=== PATIENT | male | born 1950 | race Caucasian/White ===

== ENCOUNTER 2020-07-17 10:02 | Inpatient (IN) | payer OTHER ==
[2020-07-17] VITALS (7 sets, daily range): BP systolic 107–148; BP diastolic 59–94
[~2020-07-17] VITALS: Ht 177.8 cm; Wt 115.2 kg
[2020-07-17 10:27] LABS: HEMATOCRIT 33.3 % (42.0-52.0); WBC 8.6 thou/uL (4.0-11.0)
[2020-07-17 10:29] LABS: ABSOLUTE NEUTROPHILS 6.3 thou/uL (1.4-8.2); BASOPHILS 0.8 % (0.0-2.0); EOSINOPHILS 3.7 % (0.0-3.0); HEMOGLOBIN 10.6 gm/dL (14.0-18.0); LYMPHOCYTES 14.6 % (24.0-44.0); MCH 29.7 pg (26.0-34.0); MCV 92.9 fL (80.0-100.0); MONOCYTES 7.7 % (1.0-8.0); PLATELET COUNT 275 thou/uL (150-400); POLYS 73.2 % (36.0-66.0); RBC 3.58 mil/uL (4.50-6.00); RDW 19.3 % (10.5-14.5)
--- NOTE | 2020-07-17 10:35 | NUR ---
RT AT BEDSIDE TO ASSESS
[2020-07-17 10:51] LABS: ANISOCYTOSIS 2+; PLATELET ESTIMATE NORMAL
[2020-07-17 10:52] LABS: BE(vivo) 1.8 mmol/L (-2 to +3); HCO3 30.6 mmol/L (22.0-26.0); PO2 190.7 mmHg (80.0-100.0)
[2020-07-17 10:53] LABS: PCO2 72.2 mmHg (35.0-45.0); pH 7.245 (7.360-7.450)
[2020-07-17 11:05] LABS: ANION GAP 3 mmol/L (7-16); BUN 16 mg/dL (7-18); CALCIUM 9.3 mg/dL (8.5-10.1); CHLORIDE 99 mmol/L (98-107); CO2 32 mmol/L (21-32); GLUCOSE 121 mg/dL (74-106); POTASSIUM 4.7 mmol/L (3.5-5.1); SODIUM 134 mmol/L (136-145)
[2020-07-17 11:15] LABS: ALBUMIN 3.4 g/dL (3.4-5.0); MAGNESIUM 1.8 mg/dL (1.8-2.4); SGOT 15 U/L (15-37); SGPT 17 U/L (30-65); TOTAL BILIRUBIN 0.4 mg/dL (0.2-1.0); TOTAL PROTEIN 7.4 g/dL (6.4-8.2); TROPONIN-I <0.06 ng/mL (<0.06)
--- NOTE | 2020-07-17 14:38 | EKG ---
[facility] [place] [address] ELECTROCARDIOGRAM REPORT Name: GRADY MUSE Room #: 170-21 ADM IN M.R.#: [id number] Admission: 07/17/20 Attend Phys: Georgi Salter Discharge: Date of : 48 Report #: [id number] THIS REPORT FOR: cc: NO FAMILY PHYSICIAN or PCP NO FAMILY PHYSICIAN or PCP Gregorio Owusu MD [facility] ~ THIS REPORT FOR: //name// [facility] ED Test Date: 2020-07-17 Test Time: 12:06:45 Pat Name: GRADY MUSE Department: Room: 170 Gender: M Cover Stri[facility] 1950 Requested By: Christian Sullivan Order Number: [id number] MD: Gregorio Owusu Measurements Intervals [place] Rate: 87 P: 62 SC: 127 QRS: 87 QRSD: 133 T: 41 QT: 366 QTc: 441 Interpretive Statements Sinus rhythm Right bundle branch block Baseline wander in lead(s) V2 No previous ECG available for comparison Electronically Signed On 07-17-2020 14:38:40 INFECTION CONTROL NURSE by Gregorio Owusu [email or web address] <ELECTRONICALLY SIGNED> By: Gregorio Owusu MD, FACC 07/17/20 1438 1206 1206 Gregorio Owusu MD, [facility] /EPI
--- NOTE | 2020-07-17 17:30 | NUR ---
PATIENT ADMITTED TO ICU ROOM 247 AT 1657 FROM ED VIA CART. ON BIPAP. ATTACHED TO FLANGE MACHINE OPERATOR AND O2 SAT MONITORS. NO ACUTE DISTRESS NOTED.
--- NOTE | 2020-07-17 19:55 | NUR ---
SPOKE WITH SUNNI BY PHONE, RETURNED PHONE CALL, GIVEN CODE AND UPDATED HER ON THE PATIENT'S STATUS.
[2020-07-18] VITALS (36 sets, daily range): BP systolic 95–153; BP diastolic 47–82
--- NOTE | 2020-07-18 04:46 | NUR ---
>>>BEDSIDE SHIFT REPORT RECEIVED, CARE ASSUMED. PT AWAKE. ON BIPAP SETTINGS AND IS TOLERATING. DENIES PAIN OR DISCOMFORT. WILL CONTINUE TO MONITOR. >>>2000 ASSESSMENTS DONE DOCUMENTED. CONTINUES ON BIPAP SETTINGS, FIO2 AT 30% TOLERATING WITHOUT COMPLICATIONS. DR LOMELI PRESENT, ROUNDING ON PT. UPDATE GIVEN. GAVE ORDER FOR A PCR TEST FOR SECOND COVID-19 TEST. WILL CONTINUE TO MONITOR. >>>0445 PT REFUSED BED BATH AND BLOOD DRAW THIS AM. STATED HE DOES NOT NEED A BATH OR BLOOD DRAWN AT THIS TIME. SECOND PCR COVID TEST RESULTS BACK NEGATIVE. CHARGE NURSE, GLASS FITTER AND ANA CRM COORDINATOR CIRCUIT BREAKER SUPERVISOR NOTIFIED. PT AWAKE THIS TIME, USED BEDSIDE COMMODE. WILL CONTINUE TO MONITOR.
[2020-07-18 05:45] LABS: BE(vivo) 3.2 mmol/L (-2 to +3); HCO3 29.9 mmol/L (22.0-26.0); PO2 75.7 mmHg (80.0-100.0); pH 7.346 (7.360-7.450); sO2 94.2 % (92.0-98.0)
[2020-07-18 09:03] LABS: HEMATOCRIT 35.7 % (42.0-52.0); HEMOGLOBIN 11.4 gm/dL (14.0-18.0); MCH 29.9 pg (26.0-34.0); MCHC 31.9 g/dL (28.0-37.0); MCV 93.8 fL (80.0-100.0); RBC 3.8 mil/uL (4.50-6.00); WBC 10.2 thou/uL (4.0-11.0)
[2020-07-18 09:09] LABS: CALCIUM 10.2 mg/dL (8.5-10.1); CREATININE 1.1 mg/dL (0.7-1.3); POTASSIUM 5.4 mmol/L (3.5-5.1)
[2020-07-18] MEDS ORDERED: LISINOPRIL20 MG PO (13:04)
[2020-07-18] MEDS ORDERED: XARELTO20 MG PO (13:04)
[2020-07-18] MEDS ORDERED: LEVO-T100 MCG PO (13:05)
--- NOTE | 2020-07-18 16:07 | NUR ---
chart review. unable to visit with zcah rt resting and use of bipap with soa. cm visited with venancio via phone call. intro to cm and dcp. she reported " live in house, have front porches steps, but going in side door there is 1. basement where laundry is. he doesnt have to do that. he is independent. [facility], o2 and btx. [facility] not [facility], he can stay at your hospital. thank you"/venancio .
--- NOTE | 2020-07-18 17:41 | NUR ---
Patient had uneventful day. Sat in the chair most of the day. More confortable on his back. Transfer order in since this am. Ate great. Up to BSC x3 to void and have a BM. No pain. Tolerated 4l O2 per NC with adequate oxygenation. Heart rate and rhythm stable. Blood pressures stable. No complaints. Talked to his and got his list of medications. Updated reconcilled medication list. Patient is progressing towards plan of care. See documentation on interventions for assessment detials.
[2020-07-19] VITALS (7 sets, daily range): BP systolic 142–148; BP diastolic 53–70
--- NOTE | 2020-07-19 07:49 | NUR ---
Patient progressing towards plan of care as evidenced by he is tolerating home dose of nasal cannula. He is alert and oriented. He expressed he will go to his [employer] [facility] [employer] and get his cpap fixed and him not wearing it is what caused this. Plan of care is to continue to monitor patient assessments q4 hours, hopefully transfer to CCU, as he is no longer ICU status.
[2020-07-19] MEDS ORDERED: LEVOFLOXACIN750 MG PO (08:46)
[2020-07-19] MEDS ORDERED: CARDIZEM CD 18180 M3 PO (08:47)
[2020-07-19] MEDS ORDERED: PULMICORT0.5 MG/21 INH (08:47)
[2020-07-19] MEDS ORDERED: PREDNISONE 5 MG5 M1 PO (08:48)
--- NOTE | 2020-07-19 10:03 | NUR ---
ccu status. [facility] before he goes home. possible will dc home no needs today or over the weekend.
--- NOTE | 2020-07-19 13:43 | NUR ---
PT DISCHARGED TO HOME VIA WHEELCHAIR WTTH SPOUSE AT 1315. [facility] TO [facility]. PT ON 4L NC. PT'S IV OUT. PER PT, RT DOESNT NEED TO LOOK AT HIS MACHINE.
== END 2020-07-19 13:15 | disposition home or self-care (01) | DRG 189 ==
LOC: ER 10:02 → EROBS 11:42 → ICU 11:42
PROVIDERS: Emergency Medicine; ADMIT Hospitalist; ATTEND Hospitalist
PROC: 5A09357 Assistance with Respiratory Ventilation, Less than 24 Consecutive Hours, Continuous Positive Airway Pressure (ICD-10-PCS; principal; 2020-07-17)
PROC: 5A09357 Assistance with Respiratory Ventilation, Less than 24 Consecutive Hours, Continuous Positive Airway Pressure (ICD-10-PCS; 2020-07-18)
PROC: 5A09357 Assistance with Respiratory Ventilation, Less than 24 Consecutive Hours, Continuous Positive Airway Pressure (ICD-10-PCS; 2020-07-19)
DX: J96.21 Acute and chronic respiratory failure with hypoxia (principal); J44.1 Chronic obstructive pulmonary disease with (acute) exacerbation; J96.22 Acute and chronic respiratory failure with hypercapnia; Z20.828 Contact with and (suspected) exposure to other viral communicable diseases; I10 Essential (primary) hypertension; E03.9 Hypothyroidism, unspecified; D64.9 Anemia, unspecified; G47.419 Narcolepsy without cataplexy; G47.33 Obstructive sleep apnea (adult) (pediatric); E66.9 Obesity, unspecified; Z68.36 Body mass index [BMI] 36.0-36.9, adult; Z85.118 Personal history of other malignant neoplasm of bronchus and lung; Z86.718 Personal history of other venous thrombosis and embolism; Z79.899 Other long term (current) drug therapy
CPT/HCPCS: 10078

== ENCOUNTER → 2021-06-24 | Outpatient (CLI) | payer OTHER ==
[~2021-06-24] MED LIST: CARDIZEM CD 18180 M3 PO; LEVO-T100 MCG PO; LEVOFLOXACIN750 MG PO; LISINOPRIL20 MG PO; PREDNISONE 5 MG5 M1 PO; PULMICORT0.5 MG/21 INH; XARELTO20 MG PO
== END ==
LOC: SJCVC 15:03 → SJCVCIMAG 15:03
PROVIDERS: ATTEND Nuclear Medicine Nuclear Cardiology
DX: I65.23 Occlusion and stenosis of bilateral carotid arteries (principal); R94.31 Abnormal electrocardiogram [ECG] [EKG]; I45.2 Bifascicular block; C34.90 Malignant neoplasm of unspecified part of unspecified bronchus or lung; I71.4 Abdominal aortic aneurysm, without rupture; I10 Essential (primary) hypertension; J44.9 Chronic obstructive pulmonary disease, unspecified; E03.9 Hypothyroidism, unspecified; G47.33 Obstructive sleep apnea (adult) (pediatric); Z86.718 Personal history of other venous thrombosis and embolism; Z87.891 Personal history of nicotine dependence; Z72.89 Other problems related to lifestyle; Z79.899 Other long term (current) drug therapy; Z79.891 Long term (current) use of opiate analgesic

== ENCOUNTER 2021-06-30 07:46 | Inpatient (IN) | payer OTHER ==
[~2021-06-30] VITALS: Ht 177.8 cm; Wt 113.9 kg
[2021-06-30 09:13] VITALS: BP 91/42
[2021-06-30 09:15] LABS: HEMATOCRIT 31.4 % (42.0-52.0); HEMOGLOBIN 9.8 gm/dL (14.0-18.0); MCH 25.5 pg (26.0-34.0); MCHC 31.2 g/dL (28.0-37.0); MCV 81.8 fL (80.0-100.0); RBC 3.84 mil/uL (4.50-6.00); RDW 20.1 % (10.5-14.5); WBC 12.2 thou/uL (4.0-11.0)
[2021-06-30 09:29] LABS: CREATININE 1.2 mg/dL (0.7-1.3); POTASSIUM 4.5 mmol/L (3.5-5.1)
[2021-06-30] MEDS ORDERED: ALBUTEROL2.5 MG/31 INH (10:01)
[2021-06-30] MEDS ORDERED: TESSALON PERLE100 M1 PO (10:02)
[2021-06-30] MEDS ORDERED: BUDESONIDE0.25 MG/2 INH (10:06)
[2021-06-30] MEDS ORDERED: FLEXERIL PO (10:07)
[2021-06-30] MEDS ORDERED: DEXAMETHASONE 44 M1 PO (10:09)
[2021-06-30] MEDS ORDERED: GUAIFENESIN400 MG PO (10:11)
[2021-06-30] MEDS ORDERED: NORCO 10-325 T1 EACH PO (10:12)
[2021-06-30] MEDS ORDERED: KRISTALOSE20 GM PO (10:12)
[2021-06-30] MEDS ORDERED: LEVOTHYROXINE200 MC2 PO (10:14)
[2021-06-30] MEDS ORDERED: XOPENEX HFA15 GM INH (10:14)
[2021-06-30] MEDS ORDERED: LIDODERM1 EACH TOP (10:19)
[2021-06-30] MEDS ORDERED: PRINIVIL40 MG PO (10:20)
[2021-06-30] MEDS ORDERED: IMODIUM A-D2 M1 PO (10:21)
[2021-06-30] MEDS ORDERED: MECLIZINE HCL12.5 MG PO (10:21)
[2021-06-30] MEDS ORDERED: SUPER THERAVIT1 EACH PO (10:22)
[2021-06-30] MEDS ORDERED: ROSUVASTATIN CA10 MG PO (10:24)
[2021-06-30] MEDS ORDERED: MIRALAX17 GM PO (10:24)
[2021-06-30] MEDS ORDERED: BYSTOLIC 5 MG5 M1 PO (10:25)
[2021-06-30] MEDS ORDERED: SENOKOT-S TABL1 EACH PO (10:26)
[2021-06-30] MEDS ORDERED: FUROSEMIDE 20 M20 MG PO (10:31)
[2021-06-30] MEDS ORDERED: KLOR-CON M2020 MEQ PO (10:32)
[2021-06-30] MEDS ORDERED: OLODATEROL (10:33)
[2021-06-30 15:34] LABS: ABSOLUTE NEUTROPHILS 4.4 thou/uL (1.4-8.2); BASOPHILS 0.6 % (0.0-2.0); EOSINOPHILS 3.4 % (0.0-3.0); HEMATOCRIT 27.9 % (42.0-52.0); LYMPHOCYTES 19.9 % (24.0-44.0); MCH 26.6 pg (26.0-34.0); MCHC 32.2 g/dL (28.0-37.0); MCV 82.4 fL (80.0-100.0); MONOCYTES 8.6 % (1.0-8.0); POLYS 67.5 % (36.0-66.0); RBC 3.38 mil/uL (4.50-6.00); WBC 6.5 thou/uL (4.0-11.0)
[2021-06-30 15:37] LABS: PLATELET COUNT 262 thou/uL (150-400)
[2021-06-30 15:38] LABS: URINE BILIRUBIN NEGATIVE (Negative); URINE BLOOD NEGATIVE (Negative); URINE CLARITY CLEAR; URINE COLOR YELLOW; URINE GLUCOSE-RANDOM* NEGATIVE (Negative); URINE KETONES NEGATIVE (Negative); URINE LEUKOCYTES-REFLEX NEGATIVE (Negative); URINE NITRITE-REFLEX NEGATIVE (Negative); URINE PROTEIN (DIPSTICK) NEGATIVE (Negative); URINE SPECIFIC GRAVITY 1.015 (1.005-1.035); URINE UROBILINOGEN 0.2 E.U./dl (0.2-1.0)
[2021-06-30 15:55] LABS: ALBUMIN 2.5 g/dL (3.4-5.0); CALCIUM 9.4 mg/dL (8.5-10.1); CREATININE 0.9 mg/dL (0.7-1.3); POTASSIUM 4.3 mmol/L (3.5-5.1); TOTAL BILIRUBIN 0.3 mg/dL (0.2-1.0); TOTAL PROTEIN 6.3 g/dL (6.4-8.2)
[2021-06-30 15:56] LABS: APTT 28.3 Seconds (24.5-32.8); PROTIME 10.7 Seconds (9.3-11.4)
[2021-06-30 20:30] VITALS: BP 99/56
[2021-07-01 04:45] VITALS: BP 112/66
[2021-07-01 05:45] LABS: CALCIUM 9.4 mg/dL (8.5-10.1); CREATININE 0.9 mg/dL (0.7-1.3); POTASSIUM 5.1 mmol/L (3.5-5.1)
[2021-07-01 05:47] LABS: HEMATOCRIT 27.7 % (42.0-52.0); HEMOGLOBIN 8.8 gm/dL (14.0-18.0); MCH 26.2 pg (26.0-34.0); MCHC 31.6 g/dL (28.0-37.0); MCV 82.9 fL (80.0-100.0); RBC 3.34 mil/uL (4.50-6.00); RDW 19.7 % (10.5-14.5)
[2021-07-01 08:30] VITALS: BP 117/58
[2021-07-01 13:04] VITALS: BP 107/53
[2021-07-01 17:03] VITALS: BP 106/52
[2021-07-01 17:05] VITALS: BP 106/52
--- NOTE | 2021-07-01 17:58 | NUR ---
1705-RECEIVED PT INTO 243 FROM PACU VIA BED.CARDENE INFUSING @ 15MG/HR. PT C/O PAIN IMMED UPON ARRIVAL.--VW 9150- IN [place] TO SEE. ROBERT MALLOY & BRUNILDA IN.--VW
[2021-07-02 04:35] LABS: HEMATOCRIT 25.4 % (42.0-52.0); HEMOGLOBIN 8.2 gm/dL (14.0-18.0); MCH 26.5 pg (26.0-34.0); MCHC 32.3 g/dL (28.0-37.0); MCV 82.2 fL (80.0-100.0); RBC 3.09 mil/uL (4.50-6.00); RDW 19.4 % (10.5-14.5); WBC 7.9 thou/uL (4.0-11.0)
[2021-07-02 04:57] LABS: CALCIUM 8.8 mg/dL (8.5-10.1); CREATININE 0.9 mg/dL (0.7-1.3)
--- NOTE | 2021-07-02 06:10 | NUR ---
This RN spoke to Hussein, , at 0605. Discussed patient status and plan of care.
[2021-07-02 11:06] VITALS: BP 111/55
[2021-07-02 12:00] VITALS: BP 108/51
[2021-07-02 14:09] VITALS: BP 137/53
[2021-07-02 15:40] VITALS: BP 137/53
[2021-07-02 16:59] VITALS: BP 129/63
--- NOTE | 2021-07-02 17:35 | NUR ---
PT IS PROGRESSING TOWARDS CARE PLAN GOAL EVIDENCE BY DECREASED PAIN. PT WORKED WITH PT AND OT TODAY AND TOLERATED BEING IN CHAIR. PT CURRENTLY HAS NO COMPLAINTS OF PAIN. PT DOES STATE THAT WHEN HE URINATED A SMALL AMOUNT THAT IT HAS A BURNING SENSATION. LOERA CATHETER AND ARTERIAL LINE WERE DISCONTINUED THIS AM. PT RECEIVED TRANSFER ORDERS AND WILL PLAN TO DISCHARGE TOMORROW. wILL CONTINUE TO MONITOR.
[2021-07-02 20:02] VITALS: BP 134/58
[2021-07-03 09:00] VITALS: BP 132/60
[2021-07-03] MEDS ORDERED: ASA81BEC PO (09:11)
--- NOTE | 2021-07-03 11:23 | NUR ---
INITIAL ASSESSMENT/DISCHARGE NOTE: SW reviewed chart and spoke with nursing. Pt was admitted from home after AAA repair. Pt is medically stable for discharge home today. SW met with pt and at bedside. Introduced role of SW. Pt is alert/orientated x 4. Pt reports that he and his live at home. There are 2 steps to enter and 12 steps inside. Pt is normally independent with ADLs. Pt has home O2 in place. Pt is normally on 4L of O2. Pt and spouse are unsure name of home O2 provider. Pt goes to the [facility] for primary care. Pt has portable O2 tank at bedside. Pt's will provide transportation home. Pt will follow up with CTS on 07/16/2021 at 1000. No additional SW needs identified at this time. SW is available to assist should needs arise.
[2021-07-03 11:36] VITALS: BP 132/60
--- NOTE | 2021-07-03 12:31 | HC ---
[facility] [place] [address] CONSULTATION Name: GRADY MUSE Room #: 243-P [facility] IN M.R.#: [id number] Admission: 07/01/21 Attend Phys: Lebron eCron MD Discharge: Date of : 48 Report #: [id number] THIS REPORT FOR: cc: NO FAMILY PHYSICIAN or PCP NO FAMILY PHYSICIAN or PCP Omega Sunshine MD ~ DATE OF SERVICE: 06/30/2021 We were asked to see the patient by Dr. Ceron. HISTORY OF PRESENT ILLNESS: The patient is a 70-year-old sent from the [facility] for an abdominal aortic aneurysm. The patient has a known abdominal aneurysm, but this appears to have grown over time. The patient is currently treated at the [facility] for left upper lobe lung cancer, which is diagnosed as IIIA and being treated with definitive chemoradiation. The patient does have chronic pulmonary dysfunction and uses oxygen at home. Currently, the patient has a 7 cm infrarenal abdominal aortic aneurysm that has an additional small saccular component. It looks as if the aneurysm may have leaked anteriorly and this might have sealed but clearly this is an ominous finding. 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 HOME MEDICATIONS: Includes albuterol, Tessalon, Pulmicort, Flexeril, Decadron, guaifenesin, Adams, lactulose, levalbuterol, levothyroxine, lisinopril, Imodium, Antivert. ALLERGIES: None reported. SOCIAL HISTORY: The patient is . He is a former smoker, retired from work as an automobile club travel counselor. REVIEW OF SYSTEMS: GENERAL: No change in weight. EYES: No vision change. ENT: No hearing problems, sinus problems. The patient does have a hoarse voice, but he claims this is related to radiation rather than the tumor itself. PULMONARY: Short of breath with exertion. Uses oxygen. CARDIAC: Denies angina, palpitations. GASTROINTESTINAL: Complains of intermittent constipation. No nausea, vomiting, blood. GENITOURINARY: No urgency, frequency, blood. MUSCULOSKELETAL: No bone or joint pain. [facility] [address] [place] [address] CONSULTATION Name: GRADY MUSE Room #: 243-P [facility] IN M.R.#: [id number] Admission: 07/01/21 Attend Phys: Lebron Ceron MD Discharge: Date of : 48 Report #: [id number] SKIN: No rash or infection. NEUROLOGIC: No motor or sensory dysfunction. HEMATOLOGIC: Did have bruisability and bleeding when taking Xarelto for deep vein thrombosis, but this is better now. ENDOCRINE: No goiter, no tremor. PHYSICAL EXAMINATION: GENERAL: The patient is a pleasant fellow, oriented and appropriate, status post catheterization. VITAL SIGNS: Blood pressure 140/88, heart rate 100. HEENT: No scleral icterus. No arcus. NECK: No mass, no bruit. CHEST: Decreased breath sounds, left upper chest, otherwise clear. CARDIAC: Heart rhythm regular. No murmur. ABDOMEN: Somewhat protuberant, soft. EXTREMITIES: No clubbing, cyanosis or edema. VASCULAR: 2+ left femoral pulse. Right femoral was just catheterized. MUSCULOSKELETAL: No bone or joint asymmetry or deformity. SKIN: No rash or infection. ASSESSMENT AND PLAN: The patient has a large infrarenal abdominal aortic aneurysm with a small saccular component and we have discussed admission for definitive treatment (stent graft placement). The risks and details of this were discussed with the patient and his . These include but are not limited to bleeding, infection, anesthesia risks, and of course endoleak. Options and alternatives were discussed. The patient understands all of this and wishes to proceed. We will make arrangements for patient to be admitted in the hopes that surgery can be done tomorrow. Thank you for the consult. <ELECTRONICALLY SIGNED> By: Omega Sunshine MD 07/03/21 1231 1400 1642 Omega Sunshine MD /nt
--- NOTE | 2021-07-03 12:31 | O ---
[facility] [place] [address] OPERATIVE REPORT Name: GRADY MUSE Room #: 243-P ADM IN M.R.#: [id number] Admission: 07/01/21 Attend Phys: Lebron Ceron MD Discharge: Date of : 48 Report #: [id number] THIS REPORT FOR: cc: NO FAMILY PHYSICIAN or PCP NO FAMILY PHYSICIAN or PCP Omega Sunshine MD ~ DATE OF SERVICE: 07/01/2021 PREOPERATIVE DIAGNOSIS: Abdominal aortic aneurysm. POSTOPERATIVE DIAGNOSIS: Abdominal aortic aneurysm. OPERATION: Stent graft implant for infrarenal abdominal aortic aneurysm with arteriography. SURGEON: Dr. Omega Sunshine and Dr. Lebron Ceron. ANESTHESIA: General. INDICATIONS: The patient is sent to us by the [facility]. The patient has a large infrarenal abdominal aortic aneurysm. Apparently, the [facility] is unable to care for the patient in a timely fashion. FINDINGS AND TECHNIQUE: After general anesthesia was established, incisions were made in both groins to expose and control the common femoral arteries. A 10,000 units of heparin were given. On each side, access was gained with arterial needle and guidewire and 6-Pakistani sheaths were placed. Through these sheaths, a long guidewire was placed and an exchange catheter was placed over this and then the wire was swapped for Alec wire. On each side, the 6-Pakistani sheath was removed and a larger sheath was placed. On the right side a femoral cutdown was made and the 12-Pakistani sheath was placed and on the left side cutdown was made and the 18-Pakistani sheath was placed. Through the left side, the main component was placed. A 31 x 14.5 x 13 main component was placed. Through the right side, a visceral catheter was placed into the lower, left, renal artery and this was used for our location. The main component was placed to lie just below the left and right renal artery origins. The contralateral gate was opened. The visceral catheter was removed and the contralateral gate was cannulated. The pigtail catheter was then placed through the contralateral gate and the spin technique was used to ascertain good position. The marked pigtail was placed at the contralateral gate and the right-sided sheath arteriogram was taken to localize the hypogastric takeoff and measured [facility] [address] [place] [address] OPERATIVE REPORT Name: GRADY MUSE Room #: 243-P [facility] IN M.R.#: [id number] Admission: 07/01/21 Attend Phys: Lebron Ceron MD Discharge: Date of : 48 Report #: [id number] the length of the graft needed. A 20 x 11.5 limb was selected and this was placed to lie at the contralateral gate and opened to lie just above the hypogastric takeoff. The remainder of the main component was fully deployed and then the marked pigtail was placed up the left side and then a sheath arteriogram was taken on the left side. A 20 x 9.5 limb was selected to lie in the main component and proximally and just above the hypogastric takeoff distally. With all of the components placed, the compliant balloon was placed first through the left side, then the right side to fully deploy all components. After this was completed, an arteriogram was taken using a pigtail catheter placed up the right side. Our final arteriography showed no evidence of endoleak and good position of all components. With this information, the pigtail was removed and dilators were replaced within the sheaths. Sheaths and dilators were removed and then the guidewires were removed. On each side, a femoral cutdown was closed with interrupted Prolene. Flow was reestablished. Heparin, which had been given at the outset of the case was reversed and when hemostasis was satisfactory, the wounds were closed in layers. The patient was taken to the recovery area in good condition with good distal pulses palpable. All counts were reported as correct. <ELECTRONICALLY SIGNED> By: Omega Sunshine MD 07/03/21 1231 0659 0720 Omega Sunshine MD /nt
--- NOTE | 2021-07-03 13:08 | NUR ---
1929-REFUSED LAB DRAW.--VW 1200-DISCHARGE TEACHING TO PT & . HOME VIA W/C W TO CAR. ALL BELONGINGS W PT. RX GIVEN.--VW
--- NOTE | 2021-07-03 16:44 | CATHLAB ---
[facility] [place] [address] INVASIVE PROCEDURE REPORT Name: GRADY MUSE Room #: 243-P [facility] IN M.R.#: [id number] Admission: 07/01/21 Attend Phys: Lebron Ceron MD Discharge: 07/03/21 Date of : 48 Report #: [id number] THIS REPORT FOR: cc: NO FAMILY PHYSICIAN or PCP NO FAMILY PHYSICIAN or PCP Brodie Matt MD [facility] ~ APPROVED REPORT Study performed: 06/30/2021 12:42:31 Patient Details Patient Status: Out-Patient Room #: The patient is a 70 year-old male Event Personnel Brodie Matt Corrugator Operator, Martina Alonso RTR Monitor, Parvin Avila RTR Scrub, Pro Billy RN RN, Georgette Toussaint RT(R)() Monitor Procedures Performed Left Heart Cath w/or w/o Coronaries [id number] [facility] Hemostasis w/ Mynx Procedure Narrative The was infiltrated with 1% Lidocaine subcutaneous anesthesia. A SHEATH BRITE-TIP 6F X 11CM ([id number]) sheath was inserted into the RFA 6F^. Coronary angiography was performed using coronary diagnostic catheters. The right coronary system was accessed and visualized with a JR4 catheter. The left coronary system was accessed and visualized with a JL4 catheter. The left ventricle was accessed and visualized with a PIGTAIL catheter. Left ventriculogram was performed in 30 degree projection. Closure device was deployed with a Fr MYNXGRIP 6/7F #[id number]. The patient tolerated the procedure well and there were no complications associated with the procedure. There was no hematoma. Intraoperative Conscious Sedation No sedation was used. Fluoro and contrast totals are a combined total of both a AAA workup and a heart cath. Fluoro Time: 6.09 minutes Dose: DAP 79537.00 cGycm2 151 mGy Contrast Type and Amount: Visipaque 151 ml [facility] [place] [address] INVASIVE PROCEDURE REPORT Name: GRADY MUSE [place] Room #: 243-[facility].#: [id number] Admission: 07/01/21 Attend Phys: Lebron Ceron, Discharge: 07/03/21 Date of : 48 Report #: [id number] Hemodynamics The aortic pressure is 128/65 mmHg with a mean of 54 mmHg. The left ventricular pressure is 127/6 mmHg with a mean of mmHg. The left ventricular end diastolic pressure is 33 mmHg. Conclusion #1 Normal left ventricular size and systolic function EF 55%. #2 left main widely patent giving rise to LAD and circumflex. #3 LAD with mild irregularities extends around the apex. No occlusive disease. #4 circumflex OM nondominant with mild irregularity. #5 dominant right coronary artery with minimal irregularity no occlusive disease. Recommendations and plan: Continue aggressive risk factor modification no indication for coronary intervention. Proceed with aortic stent graft repair of large aortic aneurysm. <ELECTRONICALLY SIGNED> By: Brodie Matt MD, FACC 07/03/211642 42 42 Brodie Matt MD, FACC /INF
== END 2021-07-03 12:00 | disposition home or self-care (01) | DRG 268 ==
LOC: CATH 07:46 → 2N 18:07 → ICU 07-01 13:53
PROVIDERS: Nurse Practitioner; Physician Assistant; Surgery Vascular Surgery; ADMIT Internal Medicine Cardiovascular Disease; ATTEND Nuclear Medicine Nuclear Cardiology
PROC: B4151ZZ Fluoroscopy of Inferior Mesenteric Artery using Low Osmolar Contrast (ICD-10-PCS; 2021-06-30)
PROC: B41D1ZZ Fluoroscopy of Aorta and Bilateral Lower Extremity Arteries using Low Osmolar Contrast (ICD-10-PCS; 2021-06-30)
PROC: 5A09357 Assistance with Respiratory Ventilation, Less than 24 Consecutive Hours, Continuous Positive Airway Pressure (ICD-10-PCS; 2021-06-30)
PROC: B215YZZ Fluoroscopy of Left Heart using Other Contrast (ICD-10-PCS; 2021-06-30)
PROC: B211YZZ Fluoroscopy of Multiple Coronary Arteries using Other Contrast (ICD-10-PCS; 2021-06-30)
PROC: B4141ZZ Fluoroscopy of Superior Mesenteric Artery using Low Osmolar Contrast (ICD-10-PCS; 2021-06-30)
PROC: B4181ZZ Fluoroscopy of Bilateral Renal Arteries using Low Osmolar Contrast (ICD-10-PCS; 2021-06-30)
PROC: 4A023N7 Measurement of Cardiac Sampling and Pressure, Left Heart, Percutaneous Approach (ICD-10-PCS; 2021-06-30)
PROC: 04V03DZ Restriction of Abdominal Aorta with Intraluminal Device, Percutaneous Approach (ICD-10-PCS; principal; 2021-07-01)
PROC: B4181ZZ Fluoroscopy of Bilateral Renal Arteries using Low Osmolar Contrast (ICD-10-PCS; principal; 2021-07-01)
PROC: 5A09357 Assistance with Respiratory Ventilation, Less than 24 Consecutive Hours, Continuous Positive Airway Pressure (ICD-10-PCS; principal; 2021-07-01)
DX: I71.4 Abdominal aortic aneurysm, without rupture (principal); E43 Unspecified severe protein-calorie malnutrition; J96.20 Acute and chronic respiratory failure, unspecified whether with hypoxia or hypercapnia; C34.90 Malignant neoplasm of unspecified part of unspecified bronchus or lung; I25.10 Atherosclerotic heart disease of native coronary artery without angina pectoris; I10 Essential (primary) hypertension; J44.9 Chronic obstructive pulmonary disease, unspecified; E78.00 Pure hypercholesterolemia, unspecified; G89.29 Other chronic pain; Z20.822 Contact with and (suspected) exposure to COVID-19; Z86.718 Personal history of other venous thrombosis and embolism; Z79.899 Other long term (current) drug therapy; Z28.21 Immunization not carried out because of patient refusal
CPT/HCPCS: 10078; 10203; 47375; 48889; 50101; 50386; 50455; 52287; 54118; 56524; 56526; 56531; 56668; 56760; 57093; 62110; 62900; 65020; 65040; 70005

== ENCOUNTER → 2021-09-01 | Outpatient (CLI) | payer OTHER ==
[~2021-09-01] MED LIST changes: +ALBUTEROL2.5 MG/31 INH; +ASA81BEC PO; +BUDESONIDE0.25 MG/2 INH; +BYSTOLIC 5 MG5 M1 PO; +DEXAMETHASONE 44 M1 PO; +FLEXERIL PO; +FUROSEMIDE 20 M20 MG PO; +GUAIFENESIN400 MG PO; +IMODIUM A-D2 M1 PO; +KLOR-CON M2020 MEQ PO; +KRISTALOSE20 GM PO; +LEVOTHYROXINE200 MC2 PO; +LIDODERM1 EACH TOP; +MECLIZINE HCL12.5 MG PO; +MIRALAX17 GM PO; +NORCO 10-325 T1 EACH PO; +OLODATEROL; +PRINIVIL40 MG PO; +ROSUVASTATIN CA10 MG PO; +SENOKOT-S TABL1 EACH PO; +SUPER THERAVIT1 EACH PO; +TESSALON PERLE100 M1 PO; +XOPENEX HFA15 GM INH
== END ==
LOC: CAT 11:26
PROVIDERS: ATTEND Nuclear Medicine Nuclear Cardiology
DX: Z01.812 Encounter for preprocedural laboratory examination (principal); I71.4 Abdominal aortic aneurysm, without rupture; J90 Pleural effusion, not elsewhere classified; J98.11 Atelectasis; J84.10 Pulmonary fibrosis, unspecified; Z95.828 Presence of other vascular implants and grafts

== ENCOUNTER → 2021-09-03 | Outpatient (CLI) | payer OTHER | LOC: SJCVC 14:57 | PROVIDERS: ATTEND Nuclear Medicine Nuclear Cardiology | DX: I71.4 Abdominal aortic aneurysm, without rupture (principal); I10 Essential (primary) hypertension; J44.9 Chronic obstructive pulmonary disease, unspecified; I25.10 Atherosclerotic heart disease of native coronary artery without angina pectoris; E03.9 Hypothyroidism, unspecified; G47.33 Obstructive sleep apnea (adult) (pediatric); J96.91 Respiratory failure, unspecified with hypoxia; I82.501 Chronic embolism and thrombosis of unspecified deep veins of right lower extremity; I77.9 Disorder of arteries and arterioles, unspecified; Z86.718 Personal history of other venous thrombosis and embolism; Z87.891 Personal history of nicotine dependence; Z79.899 Other long term (current) drug therapy; Z95.828 Presence of other vascular implants and grafts ==